=== PATIENT | female | born 1950 | race American Indian/Alaskan Native ===

== ENCOUNTER 2018-07-24 09:39 | Outpatient (CLI) | payer MEDICARE ==
--- NOTE | 2018-07-24 10:31 | Ultrasound Report ---
RIGHT UPPER QUADRANT ABDOMINAL ULTRASOUND: 07/24/18 09:39:00 CLINICAL: Postprandial periumbilical pain. FINDINGS: High-resolution ultrasound demonstrated a normal size liver with mild diffuse increased echogenicity. The right lobe measures 16.7 cm in length. No liver mass. Normal hepatic vasculature and inferior vena cava. Normally distended gallbladder with no stones. The gall bladder wall measures 1.5 mm in thickness. Normal intrahepatic and extra hepatic bile ducts. The common bile duct measures 3.9 mm diameter. The pancreas was well imaged and normal. Normal upper abdominal aorta. The right kidney is normal and measures 11.3 x 4.7 x 5.4cm. No ascites or mass. IMPRESSION: 1. No cholelithiasis. 2. Normal biliary tract and pancreas. 3. Mild increased liver echogenicity suggests possible mild hepatic steatosis.
== END 2018-07-24 09:40 | disposition home or self-care (01) ==
LOC: SPVWC 09:39
DX: R10.13 Epigastric pain (principal)
CPT/HCPCS: 76705